=== PATIENT | female | born 1960 | race Caucasian/White ===

== ENCOUNTER 2024-07-09 07:54 | Emergency (ER) | payer OTHER, SELFPAY ==
[2024-07-09 07:57] VITALS: BP 104/71
--- NOTE | 2024-07-09 08:22 | ED.GENMED ---
History of Present Illness
General
Chief Complaint: Flank Pain
Source: patient
Exam Limitations: none
Time Seen by Provider: 07/09/24 08:03
Nursing documentation reviewed up to this point in time: agreed with
History of Present Illness
History of Present Illness:
64-year-old female with history of hypothyroidism, Whipple procedure 2018, appendectomy presents with right flank pain that she stated started at 530 this morning, it radiates around to the right abdomen. Pain is 9/10 at this time, she denies fever
or chills. Denies burning frequency or urgency of urination.
Past History
Past History
ED Past Medical History: Hypothyroidism
ED Past Surgical History: Appendectomy and Other (Whipple procedure 2018)
Review of Systems
Review of Systems
Allergies reviewed?: Yes
All Other Systems: ROS reviewed and negative except as documented in HPI and ROS
Constitutional: Denies fever or chills
Respiratory: Denies trouble breathing
Cardiac: Denies chest pain
ABD/GI: Reports abdominal pain and nausea; Denies vomiting or diarrhea
: Reports flank pain (right); Denies dysuria, frequency, difficulty voiding or urgency
Musculoskeletal: Reports no symptoms
Skin: Reports no symptoms
Neurological: Reports no symptoms
Phy Exam
Physical Exam
Physical Exam:
GENERAL: No acute distress. A&Ox3.
CONSTITUTIONAL: Afebrile.
EYES: clear, conjunctivae normal
ENMT: moist mucus membranes, Pharynx nl
RESPIRATORY: Regular respirations, nonlabored, lungs clear.
CARDIOVASCULAR: Regular rate and rhythm, no murmurs, no rubs.
GI: Soft, nontender, normal BS, R flank tenderness
MUSCULOSKELETAL: Moves with ease. Well perfused.
SKIN: Warm, dry, pink
PSYCH: Normal mood and affect. Well kept, interactive and appropriate
NEUROLOGIC: Awake, alert and oriented. No focal neurological deficits
Course
Orders/Labs/Results
Orders:
Orders
07/09/24 08:14
Complete Blood Count/With Diff Urgent
Comprehensive Metabolic Panel Urgent
Lipase Urgent
07/09/24 08:22
CT Abd/pel Without Iv Or Oral Urgent
Comment:
Reason For Exam: R flank pain
0.9% Sodium Chloride 1000 ml [Nss] 1,000 ml IV BOLUS
Ketorolac [Toradol] 15 mg IV NOW STA
Ondansetron Injectable [Zofran] 4 mg IV NOW STA
07/09/24 09:50
Urinalysis Reflex To Culture Urgent
Date Specimen was Collected: 07/09/24
Time Specimen was Collected: 09:46
Urine Microscopic Reflex Cult Urgent
Abnormal Lab Results
07/09/24 07/09/24
08:14 09:50
RBC 4.11 L 10^6/uL
(4.20-5.40)
Hct 36.8 L %
(37.0-47.0)
MCH 31.6 H pg
(27.0-31.0)
Monocytes % 9.5 H %
(1.7-9.3)
Carbon Dioxide 20 L mmol/L
(22-30)
Glucose 118 H mg/dl
(70-99)
Lipase 16 L U/L
(23-300)
Ur Occult Blood Reflex 1+ A
(Negative)
Leukocyte Esterase Rfl Trace A
(Negative)
Urine RBC 3-6 A /HPF
(0-2)
Urine Bacteria (Reflex) Few A
(Negative)
07/09/24 08:14
07/09/24 08:14
Vital Signs
Initial and Last Documented VS:
Initial Vital Signs
Temp Pulse Resp BP Pulse Ox
97.9 F 65 18 104/71 99
07/09/24 07:57 07/09/24 07:57 07/09/24 07:57 07/09/24 07:57 07/09/24 07:57
Last Documented Vital Signs
Temp Pulse Resp BP Pulse Ox
97.9 F 65 18 104/71 99
07/09/24 07:57 07/09/24 07:57 07/09/24 07:57 07/09/24 07:57 07/09/24 07:57
MDM/Problems Addressed
Differential Diagnosis Includes:
Kidney stone, ureteral stone, UTI, pyelonephritis
MDM/Problems Addressed:
64-year-old female with history of hypothyroidism, Whipple procedure 2018, appendectomy presents with right flank pain that she stated started at 530 this morning, it radiates around to the right abdomen. Pain is 9/10 at this time, she denies fever
or chills. Denies burning frequency or urgency of urination.
9:45 AM:
CBC normal
CMP normal
Lipase normal
CAT scan and radiology report read: IMPRESSION:
No CT evidence for nephroureterolithiasis or hydronephrosis. No acute inflammatory process within the limitations of the lack of oral and intravenous contrast.
10:45 a.m.
U/A: neg
Nothing in workup to explain pain. Pt remains tender to palpation R side/upper abdomen, no recollection overuse or injury.
Recommend Ibuprofen prn, time, f/u w PCP in 5-7 days if not much improved
*Critical Care Note
Total Time (30-74mins, 75-104mins- exclusive of procedures): Not Applicable
ED Attending Note
-
Portions of this chart may have been created with voice recognition software.� Occasional wrong word or��sound alike� substitutions may have occurred due to the inherent limitations of voice recognition software.
Discharge Plan
Departure
Patient Disposition: Home (Routine Discharge)
Date of Disposition: 07/09/24
Time of Disposition: 10:48
Patient with high blood pressure during this ER visit?: No
Condition: Good
Discharge Problem:
Acute right flank pain
Instructions: Flank Pain (DC), Musculoskeletal Pain
Referrals:
Bernard Stuart MD [Family Provider] - As needed
Activity Restrictions/Additional Instructions:
As we discussed, nothing in today's workup to explain your pain. Nothing worrisome.
Ibuprofen 600 mg (with food) every 6 hours as needed for pain.
Heating pad may help
See your doctor in 5-7 days if not a lot better by then
Return here for fever, vomiting, worsening pain, or feeling sicker in any way
Interventions
Interventions:
*Risk Screen - Suicide Last Done: 07/09/24 07:57
*General Assessment Last Done: 07/09/24 07:57
*Neglect/Abuse Screening Last Done: 07/09/24 07:57
ED- Fall Risk Assessment Last Done: 07/09/24 11:10
*ED COVID-19 Vaccine History Last Done: 07/09/24 10:43
*Nursing Disposition Last Done: 07/09/24 11:10
MJ-Dosdqn-Wiupfgfzjj Assessment Last Done: 07/09/24 08:22
ED-Female Genitourinary Assessment Last Done: 07/09/24 08:22
Discharge Date and Time
Discharge Date/Time: 07/09/24 11:10
Print Language: [place]
[2024-07-09 08:28] LABS: % Eosinophils 3.8 % (0-6); % Immature Granulocytes 0.2 % (0-0.5); % Lymphocytes 33.3 % (20.5-51.1); % Monocytes 9.5 % (1.7-9.3); % Neutrophils 52.2 % (42.2-75.2); Absolute Basophils 0.1 10^3/uL (0-0.2); Absolute Eosinophils 0.2 10^3/uL (0-0.7); Absolute Lymphocytes 1.8 10^3/uL (1.2-3.4); Absolute Monocytes 0.5 10^3/uL (0.1-0.6); Absolute Neutrophils 2.7 10^3/uL (1.4-6.5); Hematocrit 36.8 % (37.0-47.0); Mean Corp Hgb Conc. 35.3 g/dL (33.0-37.0); Mean Corpuscular Hgb 31.6 pg (27.0-31.0); Mean Corpuscular Volume 89.5 fL (81.0-99.0); Mean Platelet Volume 9.6 fL (7.4-10.4); Nucleated Red Blood Cells % 0 %; Platelet Count 215 10^3/uL (130-400); Red Blood Cell Count 4.11 10^6/uL (4.20-5.40); Red Cell Dist. Width 12.2 % (11.5-14.5); White Blood Cell Count 5.3 10^3/uL (4.8-10.8)
[2024-07-09] MEDS: ZOFRAN 4 MG IV (08:29)
[2024-07-09] MEDS: TORADOL 15 MG IV (08:29)
[2024-07-09] MEDS: NSS 1000 IV (08:30)
[2024-07-09 08:42] LABS: ALT (SGPT) 30 U/L (0-35); AST (SGOT) 30 U/L (14-36); Albumin 4.4 g/dl (3.5-5.0); Alkaline Phosphatase 107 U/L (38-126); Blood Urea Nitrogen 15 mg/dl (7-17); Calcium 9.3 mg/dl (8.4-10.2); Carbon Dioxide 20 mmol/L (22-30); Chloride 105 mmol/L (98-107); Glucose 118 mg/dl (70-99); Lipase 16 U/L (23-300); Potassium 4.3 mmol/L (3.5-5.1); Sodium 138 mmol/L (135-145); Total Bilirubin 0.3 mg/dl (0.2-1.3); Total Protein 7.2 g/dl (6.3-8.2); eGFR > 60.00
[2024-07-09 10:25] LABS: Urine Albumin Negative (Neg - Trace); Urine Bilirubin Negative (Negative); Urine Character Clear (Clear); Urine Color Yellow; Urine Glucose Negative (Negative); Urine Ketone Negative (Negative); Urine Leukocyte Trace (Negative); Urine Nitrite Negative (Negative); Urine Occult Blood 1+ (Negative); Urine Urobilinogen Negative (Neg - 1+)
[2024-07-09 10:33] LABS: Urine Urothelial Cell 0-2 /LPF (FEW)
[2024-07-09 10:36] LABS: Urine Bacteria Few (Negative); Urine Hyaline Cast 0-2 /LPF (0-2)
== END 2024-07-09 11:10 | disposition home or self-care (01) ==
LOC: EMR 07:54
PROVIDERS: Registered Nurse; EMERGENCY PHYSICIAN Emergency Medicine; FAMILY PHYSICIAN Internal Medicine
DX: R10.9 Unspecified abdominal pain (principal); R11.0 Nausea; E03.9 Hypothyroidism, unspecified
CPT/HCPCS: 99284; 96374; 96375; 96361; 74176; 80053; 81003; 81015; 83690; 85025